=== PATIENT | male | born 1990 | race African-American/Black ===

== ENCOUNTER 2017-06-25 03:04 | Emergency (ER) | payer OTHER ==
[~2017-06-25] VITALS: Ht 172.7 cm; Wt 74.8 kg
[2017-06-25 03:07] VITALS: BP 125/84
--- NOTE | 2017-06-25 03:07 | PHYS DOC ---
Adult General Chief Complaint Chief Complaint: LACERATION/AVULSION HPI HPI Patient is a 27 year old -[place] male who presents with right fifth digit laceration. He is a workplace him on the wall and got his finger caught and he has a laceration on the lateral aspect of the fifth digit on his right hand. He is right-handed. He is unsure when his last tetanus shot was. He states the tip of his finger feels slightly numb compared the rest of it. His laceration of occurred partially 3 hours prior to arrival. Review of Systems Review of Systems Constitutional: Denies fever or chills [] Eyes: Denies change in visual acuity, redness, or eye pain [] HENT: Denies nasal congestion or sore throat [] Respiratory: Denies cough or shortness of breath [] Cardiovascular: No additional information not addressed in HPI [] GI: Denies abdominal pain, nausea, vomiting, bloody stools or diarrhea [] : Denies dysuria or hematuria [] Musculoskeletal: Denies back pain or joint pain [] Integument: Denies rash or skin lesions or positive skin laceration on pinky finger of right hand Neurologic: Denies headache, focal weakness or sensory changes [] Endocrine: Denies polyuria or polydipsia [] All other systems were reviewed and found to be within normal limits, except as documented in this note. Current Medications Current Medications Current Medications Medications (Trade) Dose Ordered Sig/Joselo Start Time Stop Time Status Last Admin Dose Admin Diphtheria/ Tetanus/Acell Pertussis (Boostrix) 0.5 ml ONCE ONCE 06/25/17 04:00 06/25/17 04:01 DC 06/25/17 03:51 0.5 ML Lidocaine/ Epinephrine (Let Topical) 3 ml 1X ONCE 06/25/17 04:00 06/25/17 04:01 DC 06/25/17 03:54 3 ML Lidocaine/Sodium Bicarbonate (Buffered Lidocaine 1%) 20 ml 1X ONCE 06/25/17 04:00 06/25/17 04:01 DC 06/25/17 03:50 20 ML Allergies Allergies Allergies Coded Allergies Type Severity Reaction Last Updated Verified No Known Drug Allergies 06/25/17 No Physical Exam Physical Exam Constitutional: Well developed, well nourished, no acute distress, non-toxic appearance. [] HENT: Normocephalic, atraumatic, bilateral external ears normal, oropharynx moist, no oral exudates, nose normal. [] Eyes: PERRLA, EOMI, conjunctiva normal, no discharge. [] Neck: Normal range of motion, no tenderness, supple, no stridor. [] Cardiovascular:Heart rate regular rhythm, no murmur [] Lungs & Thorax: Bilateral breath sounds clear to auscultation [] Abdomen: Bowel sounds normal, soft, no tenderness, no masses, no pulsatile masses. [] Skin: Warm, dry, no erythema, no rash. 1 cm laceration on fifth digit of right hand on the lateral aspect of the finger between the PIP and the DIP joint. Back: No tenderness, no CVA tenderness. [] Extremities: No tenderness, no cyanosis, no clubbing, ROM intact, no edema. Able flex extend at the PIP and DIP joint in addition to MCP joint, sensation intact to light touch is slightly decreased according to patient Neurologic: Alert and oriented X 3, normal motor function, normal sensory function, no focal deficits noted. [] Psychologic: Affect normal, judgement normal, mood normal. [] Current Patient Data Vital Signs Vital Signs Date Time Temp Pulse Resp B/P (MAP) Pulse Ox O2 Delivery O2 Flow Rate FiO2 06/25/17 03:07 98.0 95 22 125/84 (98) 100 Room Air 98.0 EKG EKG [] Radiology/Procedures Radiology/Procedures [] Impressions: Finger laceration Course & Med Decision Making Course & Med Decision Making Pertinent Labs and Imaging studies reviewed. (See chart for details) Tetanus was updated. 4 simple interrupted sutures was placed in his finger laceration. He is being discharged home with return precautions. Stitches out in 7-9 days. Return precautions given. Dragon Disclaimer Dragon Disclaimer This electronic medical record was generated, in whole or in part, using a voice recognition dictation system. Laceration Repair Lac Repair Indication: Finger laceration right hand, fifth digit Procedure: The patient was placed in the appropriate position and anesthesia around the let and then 1% buffered lidocaine. The area was then normal saline and chlorhexidine. The laceration was repaired with 4 simple interrupted sutures 3-0 Ethicon The wound area was then dressed with a dressing. Total repaired wound length: 1 cm. The patient tolerated the procedure well. Complications: No complications noted. Departure Departure Impression: Primary Impression: Laceration Disposition: 01 HOME, SELF-CARE Condition: STABLE Patient Instructions: Laceration Care, Adult Additional Instructions: You had 4 stitches placed in your finger. 7-9 days you will need to have these removed. Return ER if you have swelling of her finger, increasing pain, numbness tingling, purulent discharge, you develop fevers nausea or you have other concerns. You can apply triple antibiotic ointment on the stitches and keep it covered with a Band-Aid. LELAND SALAZAR MD Jun 25, 2017 03:07
[2017-06-25] MEDS ORDERED: LIDOCAINE/EPI/TETRACAINE TOPICAL GEL 3 ML. TP ONE ×2 (03:14→04:00)
[2017-06-25] MEDS ORDERED: LIDOCAINE 1% / SOD BICARB 8.4% 20 ML VIAL. IJ ONE (04:00)
[2017-06-25] MEDS ORDERED: DIPHTH,PERTUSS(ACELL),TET TOX 0.5 ML DISP.SYRIN. VAX IM ONE (04:00)
== END 2017-06-25 04:14 | disposition home or self-care (01) ==
LOC: ER 03:04
DX: S61.216A Laceration without foreign body of right little finger without damage to nail, initial encounter (principal); W23.0XXA Caught, crushed, jammed, or pinched between moving objects, initial encounter; Y93.89 Activity, other specified; Y99.8 Other external cause status; Y92.89 Other specified places as the place of occurrence of the external cause
CPT/HCPCS: 12001; 90471; 90715; 99283-25

== ENCOUNTER → 2017-08-14 | Outpatient (CLI) | payer OTHER | END | disposition home or self-care (01) | LOC: RAD 10:08 | DX: B39.9 Histoplasmosis, unspecified (principal); R91.8 Other nonspecific abnormal finding of lung field; R07.9 Chest pain, unspecified | CPT/HCPCS: 71046 ==

== ENCOUNTER 2018-02-16 07:48 | Emergency (ER) | payer SELFPAY, OTHER ==
[2018-02-16 08:39] LABS: ADD MAN DIFF? NO
[2018-02-16 08:44] LABS: BASO % 1 % (0-3); EOS # 0.2 x10^3/uL (0.0-0.7); EOS % 3 % (0-3); HEMATOCRIT 45.3 % (39.0-53.0); HEMOGLOBIN 16.1 g/dL (13.0-17.5); LYMPH # 1.9 x10^3/uL (1.0-4.8); LYMPH % 30 % (24-48); MEAN CORPUSCULAR HEMOGLOBIN 33 pg (25-35); MEAN CORPUSCULAR HGB CONC 36 g/dL (31-37); MEAN CORPUSCULAR VOLUME 93 fL (79-100); MONO # 0.4 x10^3/uL (0.0-1.1); MONO % 7 % (0-9); NEUT # 3.7 x10^3uL (1.8-7.7); NEUT % 59 % (31-73); PLATELET COUNT 154 x10^3/uL (140-400); RED BLOOD COUNT 4.87 x10^6/uL (4.30-5.70); WHITE BLOOD COUNT 6.3 x10^3/uL (4.0-11.0)
[2018-02-16 08:52] LABS: ANION GAP 6 (6-14); BLOOD UREA NITROGEN 7 mg/dL (8-26); BUN/CREATININE RATIO 5 (6-20); CALCIUM 9.1 mg/dL (8.5-10.1); CARBON DIOXIDE 29 mmol/L (21-32); CHLORIDE 104 mmol/L (98-107); CREATININE 1.3 mg/dL (0.7-1.3); GFR 81.4; GLUCOSE 88 mg/dL (70-99); POTASSIUM 4.3 mmol/L (3.5-5.1); SODIUM 139 mmol/L (136-145)
[2018-02-16 09:00] LABS: D-DIMER < 0.27 ug/mlFEU (0.00-0.50)
[2018-02-16 09:00] LABS: ALBUMIN/GLOBULIN RATIO 1.1 (1.0-1.7); ALK PHOS 71 U/L (46-116); ALT (SGPT) 21 U/L (16-63); AST (SGOT) 18 U/L (15-37); TOTAL BILIRUBIN 1.1 mg/dL (0.2-1.0); TOTAL PROTEIN 7.6 g/dL (6.4-8.2)
[2018-02-16 09:02] LABS: TROPONINI < 0.017 ng/mL (0.000-0.055)
[2018-02-16 09:07] LABS: NT-PRO BNP 43 pg/mL (0-124)
[2018-02-16 09:07] LABS: CKMB INDEX 0.5 % (0-4); CKMB MASS 1.5 ng/mL (0.0-3.6); CREATINE KINASE 289 U/L (39-308)
== END 2018-02-16 09:45 | disposition home or self-care (01) ==
LOC: ER 07:48
DX: R07.89 Other chest pain (principal); R06.02 Shortness of breath; F17.210 Nicotine dependence, cigarettes, uncomplicated
CPT/HCPCS: 36415; 71046; 80053; 82553; 83880; 84484; 85025; 85379; 93005; 99285-25